=== PATIENT | female | born 1955 | race Caucasian/White ===

== ENCOUNTER 2017-04-26 19:24 | Inpatient (IN) ==
[2017-04-26] MEDS ORDERED: NS 1,000 ML IV ONE ×2 (20:20→21:52)
[2017-04-26] MEDS ORDERED: TYLENOL PO ONE (20:22)
[2017-04-26 20:38] LABS: BILIRUBIN URINE NEGATIVE (NEGATIVE); BLOOD URINE NEGATIVE (NEGATIVE); CLARITY CLEAR (CLEAR); COLOR YELLOW; GLUCOSE URINE NEGATIVE (NEGATIVE); LEUKOCYTES URINE TRACE (NEGATIVE); NITRITE URINE NEGATIVE (NEGATIVE); PROTEIN URINE NEGATIVE (NEGATIVE); SP GRAVITY URINE 1.005; UROBILINOGEN URINE NORMAL
[2017-04-26 20:44] LABS: URINE CAST NONE SEEN /LPF; URINE CRYSTAL NONE SEEN /HPF; URINE CULTURE PL NEEDED? YES; URINE EPITHELIAL CELLS <10 /HPF (<10); URINE RBC <10 /HPF (<10); URINE SOURCE CLEAN CATCH; URINE WBC <10 /HPF (<10)
[2017-04-26] MEDS ORDERED: ALBUTEROL NEB INH ONE (20:56)
[2017-04-26] MEDS ORDERED: DUONEB (A & A) INH ONE (20:56)
[2017-04-26] MEDS ORDERED: ALBUTEROL NEB ONE (20:58)
--- NOTE | 2017-04-26 21:03 | Diag Imaging Result Doc PS360 ---
CHEST-2 VIEWS - 04/26/2017 INDICATION: cough, fever TECHNIQUE: COMPARISON: 07/17/2016 FINDINGS: There is ill-defined infiltrate at the right lung base laterally. Stable sternotomy wires. Stable borderline cardiomegaly. Pulmonary vascularity remains top normal. Stable right chest port in good position. IMPRESSION: Right basilar infiltrate suggesting bronchopneumonia. Recommend treatment and follow-up. Electronically signed by Francesco Pleitez 04/26/2017 9:01 PM
[2017-04-26 21:04] LABS: MANUAL DIFF NEEDED? NO
[2017-04-26 21:07] LABS: BASO% 0.1 % (0.0-0.8); EOS# 0.28 X1000 (0.0-0.7); EOS% 1.6 % (0.0-10.0); HEMATOCRIT 33.1 % (37.0-47.0); HEMOGLOBIN 10.8 g/dL (12.0-16.0); IMM GRAN# 0.05 X1000 (0.0-0.04); IMM GRAN% 0.3 % (0.0-0.5); LYMPH% 2.9 % (20.5-51.1); MCH 30.8 PG (27-31); MCHC 32.6 g/dL (33-37); MCV 94.3 FL (81-99); MONO# 1.75 X1000 (0.11-0.59); MONO% 10.3 % (1.7-9.3); MPV 9.2 FL (7.4-10.4); NEUT% 84.8 % (42.2-75.2); PLT 337 X1000 (130-400); RBC 3.51 XMIL (4.2-5.4)
[2017-04-26 21:19] LABS: INR 1.91 (0.86-1.15); PROTIME 23.4 Seconds (12.1-15.5); PTT PL 45.6 Seconds (22.6-43.9)
[2017-04-26 21:21] LABS: CALCIUM 9.7 mg/dL (8.8-10.2); POTASSIUM 4.1 mmol/L (3.5-5.1); TOTAL BILIRUBIN 0.6 mg/dL (0.20-1.00); TOTAL PROTEIN 7.7 g/dL (6.3-8.3)
[2017-04-26] MEDS ORDERED: LEVAQUIN 500 MG/D5W 500 MG/100 ML IVPB IV ONE (21:25)
[2017-04-26] MEDS ORDERED: ROCEPHIN 1 GM/NS 1 GM/50 ML IVPB IV ONE (21:25)
--- NOTE | 2017-04-26 21:29 | PROVIDER DOCUMENTATION ---
HPI-General Adult - General Chief Complaint: Female Stated Complaint: WEAKNESS/FEVER/COUGH Time Seen by Provider: 04/26/17 20:09 Source: patient Allergies/Adverse Reactions: Patient Allergies Allergy/AdvReac Type Severity Reaction Status Date / Time desloratadine [From Clarinex] Allergy Unknown Verified 12/29/15 15:52 aspirin AdvReac Unknown Verified 10/05/15 18:49 clarithromycin [From Biaxin] AdvReac VOMITING Verified 10/05/15 18:49 meperidine HCl * AdvReac NAUSEA Verified 10/05/15 18:49 [From Demerol] sulfamethoxazole AdvReac VOMITING Verified 10/05/15 18:49 [From Bactrim] trimethoprim [From Bactrim] AdvReac VOMITING Verified 10/05/15 18:49 Home Medications: Home Medication List Medication Instructions Recorded Confirmed Last Taken Type Potassium Chloride 20 meq PO BID 09/12/14 04/26/17 05/29/16 History Trazodone [Desyrel] 50 mg PO HS 09/12/14 04/26/17 05/28/16 History Hydroxyzine 50 mg PO DAILY 12/29/15 04/26/17 05/28/16 History Montelukast Sodium [Singulair] 10 mg PO DAILY 12/29/15 04/26/17 05/29/16 History Hydrocodone/APAP 7.5 mg/325 mg 1 each PO Q4H PRN PRN #0 tablet 12/31/1505/28/16 Rx [[place]-7.5] Nitroglycerin [Nitrostat] 0.4 mg SL PRN PRN 12/31/15 04/26/17 Unknown History Methimazole [Northyx] 15 mg PO DAILY #30 tablet 04/19/16 04/26/17 05/29/16 Rx Digoxin [Lanoxin] 250 microgm PO DAILY #30 tablet 04/22/16 04/26/17 05/29/16 Rx Warfarin [Coumadin] 5 mg PO QHS #30 tablet 04/22/16 04/26/17 05/28/16 Rx Cyclobenzaprine [Flexeril] 10 mg PO TID PRN #30 tablet 05/29/16 04/26/17 Unknown Rx Furosemide [Lasix] 80 mg PO BID 07/17/16 04/26/17 Unknown History Isosorbide Mononitrate E.r. [Imdur] 30 mg PO BID 07/17/16 04/26/17 Unknown History Warfarin [Coumadin] 2.5 mg PO QHS 07/17/16 04/26/17 04/26/17 History Alprazolam [Xanax] 0.25 mg PO HS 01/26/17 04/26/17 Unknown History Anastrozole [Arimidex] 1 mg PO DAILY 01/26/17 04/26/17 Unknown History Cyclobenzaprine [Flexeril] 10 mg PO TID #20 tablet 01/26/17 04/26/17 Unknown Rx Ferrous Sulfate 325 mg PO QPM 01/26/17 04/26/17 Unknown History Methylprednisolone [Medrol Dosepak] 4 mg PO DIRECTED #1 package 01/26/1707/03 Unknown Rx Promethazine [Phenergan] 25 mg PO PRN PRN 01/26/17 04/26/17 Unknown History Sucralfate [Carafate] 1 gm PO PRN PRN 01/26/17 04/26/17 Unknown History Meclizine HCl [Antivert] 25 mg PO BID #30 tablet 02/07/17 04/26/17 Unknown Rx Nitrofurantoin Monohyd/M-Cryst 100 mg PO BID #14 capsule 02/07/17 04/26/17 Unknown Rx [Macrobid 100 mg Capsule] - History of Present Illness -Gen Adult Nature of Presenting Problems: pt presents complaining cough, fever, generlized weakness. She finished chemotherapy one year ago for breast CA. Also recently finished a unk abx for UTI. Onset/Duration: reports: 6 days ago Timing: reports: getting worse Context/Activities at Onset: reports: none Associated Symptoms: reports: cough, fatigue, fever/chills, genitourinary problems, loss of appetite, nausea, shortness of breath, weakness. denies: anxiety, chest pain, constipation, headaches, joint pain, muscle aches, pain with inspiration, syncope, vomiting, trouble walking Similar Symptoms Previously?: No Recently seen or treated by another doctor?: No Review of Systems - Adult - REVIEW OF SYSTEMS - ADULT Constitutional: reports: see HPI, chills, fever Eyes: reports: no symptoms reported Ears, Nose, Mouth & Throat: reports: no symptoms reported Cardiovascular: reports: no symptoms reported. denies: chest pain, syncope Respiratory: reports: see HPI, cough Gastrointestinal: reports: nausea Genitourinary: reports: frequent UTI's Musculoskeletal: reports: back pain (chronic) Integumentary: reports: no symptoms reported Neurological: reports: no symptoms reported Psychiatric: reports: no symptoms reported Endocrine: reports: no symptoms reported Hematologic/Lymphatic: reports: no symptoms reported Allergic/Immunologic: reports: no symptoms reported All Other Systems: Reviewed and Negative Past History - Adult - PAST MEDICAL HISTORY-ADULT Review of Records: reports: Old Records Reviewed, Nursing Assessment Review, Medications Reviewed, Social history reviewed & non-contributory. Major Childhood Illnesses: reports: denies history Cardiovascular: reports: heart valve problem, other Respiratory: reports: COPD Gastrointestinal: reports: diverticulosis Obstetrical/Gynecological: reports: denies history Genitourinary: reports: denies history Musculoskeletal: reports: denies history Neurological: reports: headaches/migraines Endocrine/Immune: reports: denies history Other Conditions: reports: other (breast cancer) - PRIOR SURGERIES/PROCEDURES Surgical/Procedure History: reports: appendectomy, cholecystectomy, orthopedic ( extremity), other (cardiac valve; masectomy) - IMMUNIZATION STATUS Childhood Immunizations: See Nurse Assessment Flu Vaccine: See Nurse Assessment - FAMILY HISTORY Family History: reviewed, not pertinent - SOCIAL HISTORY Smoking: cigarettes Provider spent 3-5 mins advising pt. on dangers of tobacco.: Discussed manners to quit use, and f/u contacts for add'l counseling. Substance Use: none/never Alcohol Use Frequency: never Living Situation: family Physical Exam-General - PHYSICAL EXAM-ADULT Initial Vital Signs Reviewed: Yes - CONSTITUTIONAL General Appearance: alert - EYES Eyes: PERRL/EOMI, pink conjunctivae - HEAD, EARS, NOSE, MOUTH & THROAT HENMT: normocephalic/atraumatic, moist mucous membranes - NECK Neck: non-tender, supple - RESPIRATORY Respiratory: chest non-tender, decreased breath sounds, wheezing - CARDIOVASCULAR Cardiovascular: normal peripheral pulses, regular rate, rhythm, no edema - GASTROINTESTINAL (ABDOMEN) Abdominal Exam: normal bowel sounds, tenderness (lower abd s guarding) - LYMPHATIC Lymphatic: no adenopathy - MUSCULOSKELETAL Back Exam: normal inspection, no CVA tenderness Extremity: normal range of motion, non-tender, no pedal edema, no calf tenderness - SKIN Integumentary: normal color, normal turgor, warm/dry - NEUROLOGIC Neurologic: grossly normal, no motor/sensory deficits - PSYCHIATRIC Psych/Mental Status: normal mood/affect, normal thought process Progress - PLAN OF CARE/RESULTS Progress/Plan/Lab Results: Vital Signs - 8 hr 04/26/17 19:53 04/26/17 21:00 04/26/17 21:05 Temperature 99.9 F H Pulse Rate 100 H 100 H Respiratory Rate 20 20 Blood Pressure 111/52 O2 Sat by Pulse Oximetry 96 80 L 90 L Laboratory Results - last 24 hr 04/26/17 04/26/17 04/26/17 20:10 20:50 20:50 WBC 17.01 H RBC 3.51 L Hgb 10.8 L Hct 33.1 L MCV 94.3 MCH 30.8 MCHC 32.6 L RDW Std Deviation 14.6 H Plt Count 337 MPV 9.2 Immature Gran % (Auto) 0.3 Neut % (Auto) 84.8 H Lymph % (Auto) 2.9 L [place] % (Auto) 10.3 H Eos % (Auto) 1.6 Baso % (Auto) 0.1 Immature Gran # (Auto) 0.05 H Neut # (Auto) 14.42 H Lymph # (Auto) 0.50 L [place] # (Auto) 1.75 H Eos # (Auto) 0.28 Baso # (Auto) 0.01 PT INR APTT (Factor Assay) Sodium 132 L Potassium 4.1 Chloride 94 L Carbon Dioxide 25 Anion Gap 13 BUN 48 H Creatinine 2.2 H Estimated GFR/1.73 m2 23 BUN/Creatinine Ratio 22 Glucose 103 Calculated Osmolality 277 Calcium 9.7 Magnesium 2.0 Total Bilirubin 0.60 AST 14 ALT 16 Alkaline Phosphatase 113 H Creatine Kinase 23 L Total Protein 7.7 Albumin 4.0 Globulin 4.0 Albumin/Globulin Ratio 1.0 Urine Source CLEAN CATCH Urine Color YELLOW Urine Clarity CLEAR Urine pH 6.0 Ur Specific [place] 1.005 Urine Protein NEGATIVE Urine Ketones NEGATIVE Urine Blood NEGATIVE Urine Nitrite NEGATIVE Urine Bilirubin NEGATIVE Urine Urobilinogen NORMAL Urine Microscopic RBC <10 Urine WBC TRACE A Urine Microscopic WBC <10 Ur Epithelial Cells <10 Urine Crystals NONE SEEN Urine Bacteria NEGATIVE Urine Casts NONE SEEN Urine Yeast NONE SEEN Urine Glucose NEGATIVE 04/26/17 20:50 WBC RBC Hgb Hct MCV MCH MCHC RDW Std Deviation Plt Count MPV Immature Gran % (Auto) Neut % (Auto) Lymph % (Auto) [place] % (Auto) Eos % (Auto) Baso % (Auto) Immature Gran # (Auto) Neut # (Auto) Lymph # (Auto) [place] # (Auto) Eos # (Auto) Baso # (Auto) PT 23.4 H INR 1.91 H APTT (Factor Assay) 45.6 H Sodium Potassium Chloride Carbon Dioxide Anion Gap BUN Creatinine Estimated GFR/1.73 m2 BUN/Creatinine Ratio Glucose Calculated Osmolality Calcium Magnesium Total Bilirubin AST ALT Alkaline Phosphatase Creatine Kinase Total Protein Albumin Globulin Albumin/Globulin Ratio Urine Source Urine Color Urine Clarity Urine pH Ur Specific [place] Urine Protein Urine Ketones Urine Blood Urine Nitrite Urine Bilirubin Urine Urobilinogen Urine Microscopic RBC Urine WBC Urine Microscopic WBC Ur Epithelial Cells Urine Crystals Urine Bacteria Urine Casts Urine Yeast Urine Glucose Orders Category Date Time Status Cardiac Monitoring DIRECTED Care 04/26/17 20:20 Active Saline Loc NOW Care 04/26/17 20:20 Active CHEST-2 VIEWS [RAD] Stat Exams 04/26/17 20:20 Completed BLOOD CULTURE [BLDCUL] Stat Lab 04/26/17 20:20 Ordered CBC WITH ELECTRONIC DIFF [HEME] Stat Lab 04/26/17 20:50 Completed CK PROFILE [SP CHEM] Stat Lab 04/26/17 20:50 Completed COMPREHENSIVE METABOLIC PANEL [CHEM] Stat Lab 04/26/17 20:50 Completed LACTATE, PLASMA [CHEM] Stat Lab 04/26/17 20:50 Received MAGNESIUM [CHEM] Stat Lab 04/26/17 20:50 Completed PRO B-NATRIURETIC PEPTIDE Stat Lab 04/26/17 20:50 Received PROTIME WITH INR PL [COAG] Stat Lab 04/26/17 20:[address] [COAG] Stat Lab 04/26/17 20:50 Completed TROPONIN T Stat Lab 04/26/17 20:50 Received URINE CULTURE [RM] Routine Lab 04/26/17 20:44 Ordered ua [URINALYSIS PL W/POSS RFLX CULT] [URINALYSIS] Stat Lab 04/26/17 20:10 Completed 0.9% Sodium Chloride Inj [Ns] 1,000 ml Med 04/26/17 20:20 Discontinued IV 999 mls/hr Acetaminophen [Tylenol] Med 04/26/17 20:22 Discontinued 1,000 mg PO NOW ONE Albuterol 2.5MG/Ipratrop 0.5MG [Duoneb (A & A)] Med 04/26/17 20:56 Discontinued 3 ml INH NOW ONE Albuterol Neb Med 04/26/17 20:56 Discontinued 5 mg INH NOW ONE Albuterol [Albuterol Neb] Med 04/26/17 20:58 Discontinued 5 mg .ROUTE .STK-MED ONE CefTRIAXONE 1 GM/NS [Rocephin 1 gm/Ns] Med 04/26/17 21:25 Active 1 gm in 50 ml IV NOW Levofloxacin 500 mg/D5w [Levaquin 500 mg/D5w] Med 04/26/17 21:25 Active 500 mg in 100 ml IV NOW Aerosol Treatments Routine Oth 04/26/17 20:57 Active Aerosol Treatments Stat Oth 04/26/17 20:57 Active neb [Aerosol Treatments] Stat Oth 04/26/17 20:48 Active EKG [EKG] Stat Ther 04/26/17 20:20 Ordered case and plan of care discussed with Dr. Alcantara. Result Diagrams: 04/26/17 20:50 04/26/17 20:50 - REASSESSMENT Reassessment #1 Time Reassessed: 22:30 Status: worsening (pt now becoming tachycardic and hypotensive. fluid bolus, vancomycin, pressors started. Dr. bonilla notified. will tx to ICU.) Reassessment #2 Time Reassessed: 23:30 Status: improving - XRAY 1 XRAY Study: Chest Impression: See EMR Report (right basilar infiltrate) - CONSULTS/PCP/HOSPITALIST Notification #1 *Consult/PCP/Hospitalist*: Dr. Bonilla Time Discussed: 21:38 Reason/Comments: tele bed. continue prn nebs. fluids at 75/hr Departure - Departure Date of Disposition Decision: 04/26/17 Time of Disposition Decision: 21:39 DIAGNOSIS: Hypoxemia, SOCORRO (acute kidney injury) Pneumonia Qualifiers: Pneumonia type: due to unspecified organism Laterality: right Lung location: lower lobe of lung Qualified Code(s): J18.1 - Lobar pneumonia, unspecified organism Leukocytosis Qualifiers: Leukocytosis type: other Qualified Code(s): D72.828 - Other elevated white blood cell count Atrial fibrillation Qualifiers: Atrial fibrillation type: unspecified Qualified Code(s): I48.91 - Unspecified atrial fibrillation Sepsis Qualifiers: Sepsis type: sepsis due to unspecified organism Qualified Code(s): A41.9 - Sepsis, unspecified organism Disposition: ADMITTED INPATIENT 09 Certified Medical Emergency: Emergent Condition: Serious - Critical Care Note This patient required my direct & personal management of CC.: Yes Total Time (mins): 45 Critical Care Statement: This patient required my direct personal management to treat or rule out processes, the absence of which, could potentiallly result in sudden, clinically significant life or limb threatening deterioration. Attestation - Physician/ MIKKI Attestation Patient care was provided by Advanced Practice Provider:: Yes Advanced Practice Provider:: Luis Cheng Advanced Practice Provider documentation review:: The Mid-level provider documentation, treatment plan and medical decision making was reviewed by the physician who agrees with all treatment and medical decision making by the MLP. The physician spent face to face time with patient:: Yes Advanced Practice Provider documentation review:: Supervising physician onsite and consulted in the evaluation and care of this patient. The physician did have a face to face encounter with the patient.
--- NOTE | 2017-04-26 21:50 | EKG Report ---
Test Performed on : 04/26/2017 8:39:47 PM Test Reason : CHEST PAIN Blood Pressure : / mmHG Vent. Rate : 100 BPM Atrial Rate : 101 BPM P-R Int : 000 ms QRS Dur : 106 ms QT Int : 328 ms P-R-T Axes : 000 267 091 degrees QTc Int : 423 ms Undetermined rhythm Right superior axis deviation Incomplete right bundle branch block Anteroseptal infarct (cited on or before 29-DEC-2015) ST \T\ T wave abnormality, consider lateral ischemia Abnormal ECG When compared with ECG of 17-JUL-2016 14:14, Current undetermined rhythm precludes rhythm comparison, needs review Incomplete right bundle branch block is now present Questionable change in initial forces of Septal leads Unconfirmed Result
[2017-04-26] MEDS ORDERED: MORPHINE IV PRN (21:52)
[2017-04-26] MEDS ORDERED: NS 1,000 ML ONE (22:58)
[2017-04-26] MEDS ORDERED: NS 500 ML IV ONE (23:11)
[2017-04-26] MEDS ORDERED: VANCOMYCIN 1 GM/NS 1 GM/250 ML IVPB IV ONE (23:13)
[2017-04-26] MEDS: LEVOPHED 8 MG in D5 1/2 NS 250 ML IV SCH (23:15)
[2017-04-26] MEDS ORDERED: LEVOPHED ONE (23:23)
[2017-04-26] MEDS ORDERED: VANCOMYCIN 1 GM/NS 1 GM/250 ML IVPB ONE (23:25)
[2017-04-27] MEDS: ZOFRAN IV PRN ×2 (00:09→05:17)
[2017-04-27] MEDS: DUONEB (A & A) INH SCH ×6 (01:00→19:29)
[2017-04-27] MEDS ORDERED: BENADRYL PO ONE (03:53)
[2017-04-27] MEDS ORDERED: SOLU-CORTEF IV ONE (04:07)
[2017-04-27] MEDS: LEVOPHED 8 MG in D5 1/2 NS 250 ML IV SCH (05:18)
--- NOTE | 2017-04-27 05:25 | EKG Report ---
Test Performed on : 04/27/2017 00:04:16 AM Test Reason : RHYTHM CHANGE Blood Pressure : / mmHG Vent. Rate : 101 BPM Atrial Rate : 113 BPM P-R Int : 000 ms QRS Dur : 108 ms QT Int : 356 ms P-R-T Axes : 000 -89 099 degrees QTc Int : 461 ms Atrial fibrillation. with rapid ventricular response. Left axis deviation Incomplete right bundle branch block Anteroseptal infarct (cited on or before 29-DEC-2015) T wave abnormality, consider lateral ischemia Abnormal ECG When compared with ECG of 26-APR-2017 20:39, (Unconfirmed) Previous ECG has undetermined rhythm, needs review Unconfirmed Result
[2017-04-27] MEDS ORDERED: MORPHINE IV PRN (06:43)
[2017-04-27] MEDS ORDERED: CARAFATE PO PRN (08:49)
[2017-04-27] MEDS ORDERED: FLEXERIL PO PRN (08:49)
[2017-04-27] MEDS ORDERED: NITROGLYCERIN SL PRN (08:49)
[2017-04-27] MEDS ORDERED: LEVOPHED 8 MG in D5 1/2 NS 250 ML IV PRN (09:02)
[2017-04-27] MEDS: LANOXIN PO SCH (09:54)
[2017-04-27] MEDS: IMDUR PO SCH ×2 (09:54→21:03)
[2017-04-27] MEDS: ARIMIDEX PO SCH (09:55)
[2017-04-27] MEDS: KLOR-CON PO SCH ×2 (09:55→21:03)
[2017-04-27] MEDS: LASIX PO SCH ×2 (09:55→21:04)
[2017-04-27 14:25] LABS: HEMATOCRIT 28.4 % (37.0-47.0); HEMOGLOBIN 8.8 g/dL (12.0-16.0); MCH 29.9 PG (27-31); MCV 96.6 FL (81-99); MPV 8.9 FL (7.4-10.4); RBC 2.94 XMIL (4.2-5.4)
[2017-04-27 14:33] LABS: CALCIUM 8.1 mg/dL (8.8-10.2); POTASSIUM 3.6 mmol/L (3.5-5.1)
[2017-04-27 14:35] LABS: INR 2.12 (0.86-1.15); PROTIME 25.4 Seconds (12.1-15.5)
--- NOTE | 2017-04-27 15:38 | HISTORY AND PHYSICAL ---
CHIEF COMPLAINT: Fever, chills, painful urination. HISTORY OF PRESENT ILLNESS: This is a 61-year-old female with a history of metastatic breast cancer, COPD, mechanical valve replacement, hypothyroidism. She presented to the emergency room complaining of generalized weakness, fever, and cough. She denied chest pain, syncope, shortness of breath, or any hematuria, dysuria, frequency, urgency. She was found to have a white count of 17. Chest x-ray revealed right basilar infiltrates, suggesting bronchopneumonia. Blood cultures and urine culture were obtained. She was given vancomycin, Rocephin, and Levaquin in the emergency room, as well as IV hydration, and she is being admitted for further evaluation and treatment. PAST MEDICAL HISTORY: 1. Metastatic breast cancer. She is status post XRT and chemotherapy. 2. Mitral valve replacement with [employer] prosthetic valve. 3. Chronic anticoagulation. 4. Diastolic heart failure, with the last EF being 55% in December 2015. 5. Hypothyroid. 6. History of atrial fibrillation, with RVR. 7. Mild CAD, with 30% mid LAD in 2005. PAST SURGICAL HISTORY: Bilateral mastectomies, cholecystectomy, appendectomy, right elbow surgery. SOCIAL HISTORY: She smokes about a pack a day. She denies alcohol or illicit drug use. ALLERGIES: Clarinex and aspirin, with unknown reactions. Biaxin causes vomiting, and Demerol causes nausea. Bactrim causes vomiting. HOME MEDICATIONS: A list will be obtained by the nursing staff. REVIEW OF SYSTEMS: A 14-point review of systems is discussed with the patient, with pertinent positives being stated in the HPI. She denied chest pain, palpitations, dizziness, syncope, nausea, vomiting, diarrhea, constipation, black or bloody vomitus, black or bloody stools, any hematuria, dysuria, frequency, urgency. No palpitations, PND, orthopnea. PHYSICAL EXAMINATION: GENERAL: This is a 61-year-old female who is sitting in the bed with no distress. VITAL SIGNS: Blood pressure is 121/46, heart rate is 71, respirations 16, temperature 97.8, with O2 saturations of 98-100% on 4 L nasal cannula. HEENT: Head is normocephalic, atraumatic. Pupils equal, round, react to light. EOMS are intact. Sclerae anicteric. Mucous membranes are moist. NECK: Supple, with trachea midline. CARDIOVASCULAR: Regular rate and rhythm, with an S1 click. No rubs, murmurs, or gallops noted. PULMONARY: Breath sounds are clear, with no increased work of breathing noted. Chest does rise and fall symmetrically with respiration. GASTROINTESTINAL: Abdomen is soft, nontender, nondistended, with bowel sounds in all 4 quadrants. BACK: No CVAT. No spine tenderness. MUSCULOSKELETAL: Good range of motion to joints. EXTREMITIES: No clubbing or cyanosis. She does have some bilateral lower extremity edema. NEUROLOGIC: She is alert and oriented x3. Cranial nerves 2-12 grossly intact. DIAGNOSTICS: WBC is 17, with a hemoglobin of 10.8, hematocrit of 31, and platelets of 337,000. Her INR is 1.91. Sodium is 132, potassium 4.1, BUN 48, creatinine 2.2, with a glucose of 103. Urinalysis is essentially negative. Chest x-ray reveals right lower bronchopneumonia. Blood cultures and urine culture are pending. ASSESSMENT AND PLAN: 1. Right basilar pneumonia. Blood cultures have been obtained. We will continue with antibiotic coverage, supplemental oxygen as needed. 2. Leukocytosis, secondary to #1. As stated before, cultures are pending. We will continue with current antibiotics. 3. Chronic obstructive pulmonary disease, as stated above. We will identify home medications and continue as appropriate. 4. History of mitral valve replacement with [employer] J[employer] prosthetic valve. We will continue with her anticoagulation, with a target INR between 2.5 and 3.5. 5. History of atrial fibrillation. We will continue anticoagulation. We will continue telemetry. 6. Will give DuoNeb q.4 hours with q.2 p.r.n. We will continue appropriate home medications. Further treatments pending hospital course. Dictated by CAMRON Castañeda for Kang Bonilla MD cc: CAMRON Castañeda MD [facility]
[2017-04-27] MEDS: ROCEPHIN 1 GM/NS 1 GM/50 ML IVPB IV SCH (21:03)
[2017-04-27] MEDS: DESYREL PO SCH (21:04)
[2017-04-27] MEDS: SINGULAIR PO SCH (21:04)
[2017-04-27] MEDS: HYDROXYZINE PO SCH (21:04)
[2017-04-27] MEDS: FERROUS SULFATE PO SCH (21:04)
[2017-04-27] MEDS: COUMADIN PO SCH (21:06)
[2017-04-27] MEDS: LEVAQUIN 500 MG/D5W 500 MG/100 ML IVPB IV SCH (21:43)
[2017-04-27] MEDS: NORCO-7.5 PO PRN (21:48)
[2017-04-28] MEDS: DUONEB (A & A) INH SCH ×4 (03:00→07:30)
[2017-04-28] MEDS: NORCO-7.5 PO PRN ×2 (03:22→09:15)
[2017-04-28 06:29] LABS: CALCIUM 8.1 mg/dL (8.8-10.2); POTASSIUM 3.3 mmol/L (3.5-5.1)
[2017-04-28 06:42] LABS: HEMOGLOBIN 8.7 g/dL (12.0-16.0); MCH 29.7 PG (27-31); MCHC 31.1 g/dL (33-37); MCV 95.6 FL (81-99); MPV 9.6 FL (7.4-10.4); RBC 2.93 XMIL (4.2-5.4)
[2017-04-28 06:58] LABS: INR 1.99 (0.86-1.15); PROTIME 24.2 Seconds (12.1-15.5)
[2017-04-28] MEDS: ARIMIDEX PO SCH (09:09)
[2017-04-28] MEDS: LANOXIN PO SCH (09:09)
[2017-04-28] MEDS: LASIX PO SCH ×2 (09:10→17:23)
[2017-04-28] MEDS: IMDUR PO SCH ×2 (09:10→20:51)
[2017-04-28] MEDS: KLOR-CON PO SCH ×2 (09:10→20:51)
[2017-04-28] MEDS ORDERED: KLOR-CON PO ONE (09:51)
--- NOTE | 2017-04-28 10:41 | PROGRESS NOTE ---
DATE: 04/28/2017 SUBJECTIVE: The patient notes that she is feeling better, although this morning she is feeling a little lightheaded. Denies any fevers or chills otherwise. OBJECTIVE: Vital Signs Reviewed: Temperature 97 degrees, pulse 95, respiratory rate 18, BP 134/55, satting 94% on 2 L. General: Patient is awake, alert. She is sitting on the side of the bed getting ready to eat breakfast. She is in no respiratory distress. HEENT: Normocephalic, atraumatic. ABIGAIL. Neck: Supple. CV: Regular rate. Chest: Relatively clear. Abdomen: Soft. Extremities: Moves all extremities. Neurologic: No focal changes. Skin: Warm and dry. No rashes. ASSESSMENT: 1. Leukocytosis, improved. White blood cells down to 11.9. 2. Anemia of chronic disease, stable at 8.7 and 28. 3. Hypokalemia, stable. 4. Acute on chronic renal failure, improving. PLAN: We will replace her potassium. We will continue her on oxygen for now. She is growing gram-negative rods in her urine. We will continue Levaquin for the time being. We will continue breathing treatments, although we will decrease those to p.r.n. We will change her Lasix for her last dose to be at 6 p.m. We will repeat a chest x-ray today. Further orders in the morning. cc: Kang Bonilla MD
[2017-04-28] MEDS: ZOFRAN IV PRN (12:45)
[2017-04-28] MEDS: PHENERGAN PO PRN (14:37)
[2017-04-28] MEDS: DUONEB (A & A) INH PRN (17:26)
[2017-04-28] MEDS: HYDROXYZINE PO SCH (20:50)
[2017-04-28] MEDS: DESYREL PO SCH (20:51)
[2017-04-28] MEDS: FERROUS SULFATE PO SCH (20:51)
[2017-04-28] MEDS: SINGULAIR PO SCH (20:51)
[2017-04-28] MEDS: ROCEPHIN 1 GM/NS 1 GM/50 ML IVPB IV SCH (20:52)
[2017-04-28] MEDS ORDERED: COUMADIN PO SCH (21:00)
[2017-04-28] MEDS: LEVAQUIN 500 MG/D5W 500 MG/100 ML IVPB IV SCH (21:45)
[2017-04-29] MEDS: NORCO-7.5 PO PRN ×3 (00:30→20:20)
[2017-04-29 07:02] LABS: INR 2.11 (0.86-1.15); PROTIME 25.3 Seconds (12.1-15.5)
--- NOTE | 2017-04-29 07:11 | Diag Imaging Result Doc PS360 ---
EXAM: CHEST-2 VIEWS HISTORY: hypoxia TECHNIQUE: PA and lateral chest COMMENT: There is minimal subsegmental atelectasis present in the left lower lobe which has worsened slightly since 04/26/2017. There continues to be interstitial opacity bilaterally which is also stable in appearance but worse than on the previous study of 07/17/2016. There are small bilateral pleural effusions which appear somewhat more prominently on the lateral view than on the previous study of 04/26/2017. IMPRESSION: Mild pulmonary edema and pleural effusions. Electronically signed by Johny Hardy 04/29/2017 7:09 AM
[2017-04-29] MEDS: IMDUR PO SCH ×2 (08:29→21:37)
[2017-04-29] MEDS: ARIMIDEX PO SCH (08:29)
[2017-04-29] MEDS: LANOXIN PO SCH (08:29)
[2017-04-29] MEDS: LASIX PO SCH ×2 (08:29→17:13)
[2017-04-29] MEDS: KLOR-CON PO SCH ×2 (08:29→20:19)
[2017-04-29] MEDS: PHENERGAN PO PRN (09:36)
[2017-04-29] MEDS ORDERED: LEVAQUIN 500 MG/D5W 500 MG/100 ML IVPB IV SCH (10:02)
[2017-04-29] MEDS ORDERED: TRANSDERM-SCOP TD SCH (10:15)
--- NOTE | 2017-04-29 10:42 | PROGRESS NOTE ---
DATE: 04/29/2017 SUBJECTIVE: The patient states that she feels better today overall, although she does have nausea when standing and walking, sometimes vomiting and lightheadedness. She does state this is normal since chemotherapy. She denies any chest pain, palpitations, fevers, or chills. OBJECTIVE: Vital Signs: Blood pressure is 122/54, with a heart rate of 86, respirations are 18, temperature is 98.4 degrees, with room air saturations of 96% to 98%. General: This is a 61-year- old female who is sitting on the side of the bed, eating breakfast, in no distress. HEENT: Head is normocephalic, atraumatic. Pupils equal, round, reactive to light. EOMs are intact. Sclerae anicteric. Mucous membranes are moist. Neck: Supple. Trachea midline. Cardiovascular: Regular rate and rhythm. S1, S2 appreciated. Pulmonary: Breath sounds are clear. Chest does rise and fall symmetrically with respiration. Gastrointestinal: Abdomen is soft, nontender, nondistended with bowel sounds in all 4 quadrants. Extremities: No clubbing, cyanosis, or edema. Calves nontender. Pulses are palpable x4. Neurologic: She is alert and oriented x3 with cranial nerves II through XII grossly intact. Skin: Warm and dry with no rashes or lesions noted. DIAGNOSTIC DATA: INR is 2.11. Chest x-ray revealed minimal subsegmental atelectasis in the left lower lobe, has worsened since 04/26/2017. ASSESSMENT: 1. Klebsiella urinary tract infection. 2. Leukocytosis, improved. CBC is pending at present. 3. Anemia of chronic disease. She has remained stable at 8.7 to 8.8 and 28 to 28.4. Will continue to monitor. 4. Hypokalemia. Will continue to follow labs and replete as appropriate. 5. Acute on chronic renal failure. This is improving. 6. Nausea and vomiting. This is persistent since chemotherapy, and she states it has not changed. PLAN: We will continue her oxygen as needed. She did grow Klebsiella from her urine. She is sensitive to Levaquin. We will continue Levaquin. Will change her over to p.o. We will continue p.r.n. breathing treatments. Further treatments pending hospital course. Dictated by CAMRON Castañeda for Kang Bonilla MD cc: CAMRON Castañeda MD
[2017-04-29] MEDS: DUONEB (A & A) INH PRN ×2 (10:43→19:13)
[2017-04-29] MEDS: FERROUS SULFATE PO SCH (20:18)
[2017-04-29] MEDS: HYDROXYZINE PO SCH (20:19)
[2017-04-29] MEDS: DESYREL PO SCH (20:19)
[2017-04-29] MEDS: COUMADIN PO SCH (20:19)
[2017-04-29] MEDS: SINGULAIR PO SCH (20:19)
[2017-04-29] MEDS ORDERED: LEVAQUIN PO SCH (21:00)
[2017-04-30] MEDS: NORCO-7.5 PO PRN (04:34)
[2017-04-30 06:03] LABS: HEMATOCRIT 30.1 % (37.0-47.0); HEMOGLOBIN 9.5 g/dL (12.0-16.0); MCH 29.9 PG (27-31); MCHC 31.6 g/dL (33-37); MCV 94.7 FL (81-99); MPV 9.2 FL (7.4-10.4); RBC 3.18 XMIL (4.2-5.4)
[2017-04-30 06:14] LABS: CALCIUM 8.2 mg/dL (8.8-10.2); POTASSIUM 3.3 mmol/L (3.5-5.1)
[2017-04-30 06:15] LABS: INR 1.99 (0.86-1.15); PROTIME 24.2 Seconds (12.1-15.5)
[2017-04-30] MEDS: DUONEB (A & A) INH PRN (08:15)
[2017-04-30] MEDS: ARIMIDEX PO SCH (08:40)
[2017-04-30] MEDS: IMDUR PO SCH (08:40)
[2017-04-30] MEDS: LASIX PO SCH (08:40)
[2017-04-30] MEDS: KLOR-CON PO SCH (08:40)
[2017-04-30] MEDS: LANOXIN PO SCH (08:41)
[2017-04-30 11:22] VITALS: BP 138/63
--- NOTE | 2017-04-30 18:51 | DISCHARGE SUMMARY ---
ADMISSION DATE: 04/26/2017 DISCHARGE DATE: 04/30/2017 PRIMARY CARE PHYSICIAN: CAMRON Vieira. ADMISSION DIAGNOSES: 1. Right basilar pneumonia. 2. Leukocytosis secondary to #1. 3. Chronic obstructive pulmonary disease. 4. History of mitral valve replacement with a [employer] prosthetic valve. 5. History of atrial fibrillation. DISCHARGE DIAGNOSES: 1. Right basilar pneumonia. 2. Klebsiella pneumoniae urinary tract infection. 3. Chronic obstructive pulmonary disease. 4. Acute on chronic renal failure improved. SUMMARY OF FINDINGS: This is a 61-year-old female who presented to the emergency room with complaints of generalized weakness, fever and cough. She was found to have a white blood cell count of 17,000. Chest x-ray revealed right basilar infiltrates suggesting bronchopneumonia. She was placed on IV antibiotics, IV hydration. We obtained a UA as well that grew out Klebsiella pneumoniae that was sensitive to the Levaquin she was placed on for the pneumonia so we continued that. Her white blood cell count has returned to normal. Her kidney function when she arrived had a creatinine of 2.2, it is down to 1.6. She has remained afebrile for greater than 24 hours and it is felt that she can safely be discharged home today. DISCHARGE MEDICATIONS: She will have a prescription for Levaquin 500 mg 1 p.o. at bedtime #5 with no refills. She will continue her home medications of 1. Arimidex 1 mg p.o. daily. 2. Flexeril 10 mg p.o. t.i.d. 3. Digoxin 250 mcg tablets p.o. daily. 4. Iron 325 mg p.o. q.p.m. 5. Lasix 80 mg p.o. b.i.d. 6. Hydrocodone 7.5, 1 p.o. q.4 hours p.r.n. 7. Hydroxyzine 50 mg p.o. at bedtime. 8. Isosorbide 30 mg p.o. b.i.d. 9. Singulair 10 mg p.o. at bedtime. 10. Nitroglycerin 0.4 mg sublingually p.r.n. 11. Potassium 20 mEq p.o. b.i.d. 12. Phenergan 25 mg p.o. p.r.n. 13. Carafate 1 g p.o. p.r.n. 14. Trazodone 50 mg p.o. at bedtime. 15. Coumadin 2.5 mg at bedtime on Sunday, , Sunday; and 5 mg of Coumadin on Sunday, Sunday, Sunday and Sunday. 16. Atenolol 25 mg p.o. b.i.d. 17. Losartan 25 mg p.o. daily. 18. We will hold her Zaroxolyn 2.5 mg p.o. daily and her Aldactone 25 mg daily until she follows up with her primary care physician. FOLLOWUP: She will need to follow up with her primary care physician in 1-2 weeks for a repeat culture of her urine and BMP to evaluate her kidney function, and to restart those medications. DISCHARGE TIME: 35 minutes. Dictated by CAMRON Kim for Kang Bonilla MD cc: CAMRON Kim MD Johnna Langford, CRNP
== END 2017-04-30 11:34 | disposition home or self-care (01) ==
LOC: P.ED 19:24 → SUATTDRO 22:23 → P.MEDSURG 22:23 → P.ICU 23:22 → P.MEDSURG 04-27 16:31
PROVIDERS: ATTEND Family Medicine